=== PATIENT | female | born 1980 | race Caucasian/White ===

== ENCOUNTER 2016-05-21 21:07 | Emergency (ER) | payer OTHER ==
[~2016-05-21] VITALS: Ht 157.5 cm; Wt 76.0 kg
[~2016-05-21 21:07] MED LIST: GENT5DRO28 RIGHT EYE
[2016-05-21 21:10] VITALS: Ht 157.5 cm; Wt 76.0 kg
[2016-05-21] MEDS ORDERED: predniSONE 20 MG TAB PO STA (21:33)
[2016-05-21] MEDS ORDERED: IPRATROPIUM (NEB) 0.5 MG/2.5 ML AMP NEB STA (21:33)
[2016-05-21] MEDS ORDERED: ALBUTEROL 0.083% (NEB) 2.5 MG/3 ML AMP NEB STA (21:33)
--- NOTE | 2016-05-21 21:37 | ERD ---
ER Documentation Chief Complaint Date/Time DATE: 05/21/16 TIME: 21:35 Chief Complaint COUGH CONGESTION WITH RUNNY NOSE FOR PAST 2 WEEKS, LUNG SOUNDS CLEAR HPI Patient is a 35-year-old female who presents with cough congestion runny nose for the past 2 weeks. She denies fever. She denies nausea vomiting or diarrhea. She was seen by her primary care doctor last week gave her prescription for cough syrup which has helped a little bit but she continues to have strong cough. She is not taking other medications other than the cough syrup and has not taken antibiotics. Cough is dry and worse at night but she has had some yellow color phlegm within the last past 2 days. ROS All systems reviewed and are negative except as per history of present illness. Medications Home Meds Active Scripts Albuterol Sulfate* (Proair HFA*) 8.5 Gm Hfa.aer.ad, 2 PUFF INH Q4, #1 INHALER Prov:JOVI GUPTA PA-C 05/21/16 Prednisone* (Prednisone*) 20 Mg Tab, 40 MG PO DAILY for 4 Days, TAB Prov:JOVI GUPTA PA-C 05/21/16 Azithromycin* (Zithromax*) 250 Mg Tablet, 250 MG PO .ZPACK DIRECTED, #6 TAB TAKE 500 MG (2 TABS) THE FIRST DAY THEN 250 MG (1 TAB) DAYS 2-5 Prov:JOVI GUPTA PA-C 05/21/16 Gentamicin Sulfate* (Gentamicin Sulfate* Ophth) 0.3% - 5 Ml Drops, 1 DROP RIGHT EYE Q4 for 7 Days, EA Prov:ZAIN ARCE MD 08/06/15 Allergies Allergies: Coded Allergies: No Known Allergy (Unverified , 05/21/16) PMhx/Soc History of Surgery: Yes (uterine fibroids) Anesthesia Reaction: No Hx Neurological Disorder: No Hx Respiratory Disorders: No Hx Cardiac Disorders: No Hx Psychiatric Problems: No Hx Miscellaneous Medical Probl: Yes (FIBROIDS) Hx Alcohol Use: No Hx Substance Use: No Hx Tobacco Use: No Smoking Status: Never smoker FmHx Family History: No diabetes Physical Exam Vitals Vital Signs Date Time Temp Pulse Resp B/P Pulse Ox O2 Delivery O2 Flow Rate FiO2 05/21/16 21:52 106 20 98 21 05/21/16 21:10 97.7 100 18 127/79 100 Physical Exam General: well developed, well nourished, alert, nontoxic, no distress Head: normocephalic, atraumatic Eyes: PERRL, normal conjunctiva Neck: Supple, nontender, no lymphadenopathy, no midline tenderness Ears: no tenderness over mastoids bilaterally, TMs nonerythematous, no exudates in canal Oropharynx: no tonsilar erythema or edema, uvula midline, no exudates, no kissing tonsils, no drooling Respiratory: Clear to auscaultation bilaterally, speaks in full sentences, no use of accesory muscles or labored breathing, no rales, ronchi, or wheezing Cardiovascular: RRR, No murmurs GI: soft, non tender, non distended, negative murphys sign, negative mcburneys point tenderness, no cva tenderness bilaterally, no rebound or guarding Results 24 hrs Laboratory Tests Test 05/21/16 21:56 Bedside Urine Blood 1+ Bedside Urine Glucose (UA) Negative Bedside Urine Ketones (LAB) Negative Bedside Urine Leukocyte Esterase (L Negative Bedside Urine Nitrite (LAB) Negative Bedside Urine Protein (LAB) Negative Bedside Urine pH (LAB) 6.5 Current Medications Medications (Trade) Dose Ordered Sig/Williams Route PRN Reason Start Time Stop Time Status Last Admin Dose Admin Albuterol (Proventil 0.083% (Neb)) 2.5 mg ONCE STAT NEB 05/21/16 21:33 05/21/16 21:35 DC 05/21/16 21:52 Ipratropium [place] (Atrovent 0.02% (Neb)) 0.5 mg ONCE STAT NEB 05/21/16 21:33 05/21/16 21:35 DC 05/21/16 21:52 Prednisone (Prednisone) 60 mg ONCE STAT PO 05/21/16 21:33 05/21/16 21:35 DC 05/21/16 21:57 Procedures/MDM 35-year-old female presents with cough and congestion for the past 2 weeks. She has been seen by primary care and was given cough syrup which she is taking but is not helping. She is afebrile vital signs are within normal limits. Chest x-ray was ordered. She was given prednisone and a breathing treatment. Patient had complete resolution of her symptoms after the breathing treatment. Her x-ray was negative. Patient was given prescription for a short course of prednisone and albuterol inhaler as well as a [id number] prescription for a Z- Dragan however recommended she only begin this treatment if her symptoms worsen and she understands this. Recommended this patient follow up with her primary care doctor within 48 hours or return to the emergency room for any worsening of symptoms. However this time I do believe there is suitable for outpatient management. I answered all their questions and they agreed with the plan and were discharged home. Departure Diagnosis: Primary Impression: Bronchitis Condition: Stable JOVI GUPTA PA-C May 21, 2016 21:36
[2016-05-21 21:54] LABS: URINE BLOOD (Dip) POC 1+ (NEGATIVE)
--- NOTE | 2016-05-21 23:01 | RADRPT ---
PROCEDURE: XR Chest. CLINICAL INDICATION: Asthma exacerbation TECHNIQUE: AP Portable chest. COMPARISON: No pertinent prior examinations were submitted for comparison. FINDINGS: The cardiomediastinal silhouette is normal. The lungs are clear. The osseous structures are unrema rkable. IMPRESSION: No acute findings. RPTAT: HIKT .Kolby Chao MD, MD Date Time Electronically viewed and signed by .Kolby Chao MD, MD on 05/21/2016 23:00 .T/
[2016-05-21] MEDS ORDERED: AZIT250T94 PO (23:08)
[2016-05-21] MEDS ORDERED: PRED20TA PO (23:08)
[2016-05-21] MEDS ORDERED: ALBU8.5H3 INH (23:08)
[2016-05-21 23:15] VITALS: BP 109/69; PULSE 100; RESP 16; TEMP 98.6
== END 2016-05-21 23:16 | disposition home or self-care (01) ==
LOC: FTE 21:07
DX: J20.9 Acute bronchitis, unspecified (principal)
CPT/HCPCS: 71010; 81003; 94664; J7512; Z7502; Z7610

== ENCOUNTER 2016-11-07 16:31 | Emergency (ER) | payer OTHER ==
[~2016-11-07] VITALS: Ht 152.4 cm; Wt 75.5 kg
[~2016-11-07 16:31] MED LIST changes: +ALBU8.5H3 INH; +AZIT250T94 PO; +PRED20TA PO
[2016-11-07 16:37] VITALS: Ht 152.4 cm; Wt 75.5 kg
[2016-11-07] MEDS ORDERED: KETOROLAC 30 MG INJ IM STA (17:24)
--- NOTE | 2016-11-07 18:19 | RADRPT ---
PROCEDURE: XR Left Hand. CLINICAL INDICATION: Trauma of the thumb TECHNIQUE: Three views of the left hand were obtained. COMPARISON: No prior studies are available for comparison. FINDINGS: There is no acute fracture or dislocation. The joint spaces are maintained. No erosive changes are visualized. The soft tissues are unremarkable. RPTAT: REMIGIO IMPRESSION: 1. No acute bony abnormality. .Pao Benjamin MD, MD Date Time Electronically viewed and signed by .Pao Benjamin MD, on 11/07/2016 18:19 .T/
[2016-11-07] MEDS ORDERED: IBUP-1542 PO (18:58)
--- NOTE | 2016-11-07 21:08 | ERD ---
ER Documentation Chief Complaint Date/Time DATE: 11/07/16 TIME: 21:03 Chief Complaint LEFT THUMB PAIN HPI This patient is a 36-year-old female presenting to the emergency department with complaints of left thumb pain after accidentally slamming it in a car door 2 days ago. She reports 10 out of 10 pain. Advil relieves the pain but only temporarily. She reports aggravated pain with movement. Pain is throbbing characteristic. She denies loss of consciousness, other injuries, or other symptoms currently. ROS All systems reviewed and are negative except as per history of present illness. Medications Home Meds Active Scripts Ibuprofen* (Motrin*) 600 Mg Tab, 600 MG PO Q6, #30 TAB Prov:FABIANO SIMENTAL PA-C 11/07/16 Albuterol Sulfate* (Proair HFA*) 8.5 Gm Hfa.aer.ad, 2 PUFF INH Q4, #1 INHALER Prov:JOVI GUPTA PA-C 05/21/16 Prednisone* (Prednisone*) 20 Mg Tab, 40 MG PO DAILY for 4 Days, TAB Prov:JOVI GUPTA PA-C 05/21/16 Azithromycin* (Zithromax*) 250 Mg Tablet, 250 MG PO .ZPACK DIRECTED, #6 TAB TAKE 500 MG (2 TABS) THE FIRST DAY THEN 250 MG (1 TAB) DAYS 2-5 Prov:JOVI GUPTA PA-C 05/21/16 Gentamicin Sulfate* (Gentamicin Sulfate* Ophth) 0.3% - 5 Ml Drops, 1 DROP RIGHT EYE Q4 for 7 Days, EA Prov:ZAIN ARCE MD 08/06/15 Allergies Allergies: Coded Allergies: No Known Allergy (Unverified , 05/21/16) PMhx/Soc Medical and Surgical Hx: pt denies Medical Hx History of Surgery: Yes (uterine fibroids) Anesthesia Reaction: No Hx Neurological Disorder: No Hx Respiratory Disorders: No Hx Cardiac Disorders: No Hx Psychiatric Problems: No Hx Miscellaneous Medical Probl: Yes (FIBROIDS) Hx Alcohol Use: No Hx Substance Use: No Hx Tobacco Use: No Smoking Status: Never smoker Physical Exam Vitals Vital Signs Date Time Temp Pulse Resp B/P Pulse Ox O2 Delivery O2 Flow Rate FiO2 11/07/16 16:37 98.9 81 16 118/65 99 Physical Exam Const: Nontoxic, well-appearing female in no acute distress. Head: Atraumatic Eyes: Normal Conjunctiva ENT: Normal External Ears, Nose and Mouth. Neck: Full range of motion..~ No meningismus. Skin: No petechiae or rashes Back: No midline or flank tenderness Ext: There is a subungual hematoma noted to the left thumb with some surrounding mild edema to the nailbed. Sensation and range of motion intact in all 5 fingers of the left hand. 2+ radial pulses in the affected limb. Neur: Awake and alert Psych: Normal Mood and Affect Results 24 hrs Current Medications Medications (Trade) Dose Ordered Sig/Williams Route PRN Reason Start Time Stop Time Status Last Admin Dose Admin Ketorolac Tromethamine (Toradol) 30 mg ONCE STAT IM 11/07/16 17:24 11/07/16 17:26 DC 11/07/16 18:02 [place] [id number] Radiology Main Line: [phone] DIAGNOSTIC IMAGING REPORT Patient: HEVER PETTY : 1980 Age: 36 Sex: F MR #: [id number] DOS: 11/07/16 0000 Ordering MD: FABIANO SIMENTAL PA-C Location: [facility] Room/Bed: PROCEDURE: XR Left Hand. CLINICAL INDICATION: Trauma of the thumb TECHNIQUE: Three views of the left hand were obtained. COMPARISON: No prior studies are available for comparison. FINDINGS: There is no acute fracture or dislocation. The joint spaces are maintained. No erosive changes are visualized. The soft tissues are unremarkable. RPTAT: ZZ IMPRESSION: 1. No acute bony abnormality. .Pao Benjamin MD, MD Date Time Electronically viewed and signed by .Pao Benjamin MD, MD on 11/07/2016 18: 19 .T/ CC: FABIANO SIMENTAL PA-C Procedures/MDM 36-year-old female presenting to the emergency department with complaints of left thumb pain after injury 2 days ago. Examination shows subungual hematoma. No limits in range of motion. The patient has full strength and sensation in the affected hand. X-rays were negative for fracture. Subungal Incision and Drainage with irrigation by me with assistance from Phyllis Acevedo NP. Location: Left thumb Anesthesia: None required, IM Toradol given prior to procedure. Technique: Hot cautery trepanation Complications: none 48 hour wound check. Scar minimization instructions given. The patient is feeling improved after the procedure. Departure Diagnosis: Primary Impression: Subungual hematoma Condition: Fair Patient Instructions: Subungual Hematoma Referrals: [facility] YOU HAVE RECEIVED A MEDICAL SCREENING EXAM AND THE RESULTS INDICATE THAT YOU DO NOT HAVE A CONDITION THAT REQUIRES URGENT TREATMENT IN THE EMERGENCY DEPARTMENT. FURTHER EVALUATION AND TREATMENT OF YOUR CONDITION CAN WAIT UNTIL YOU ARE SEEN IN YOUR DOCTORS OFFICE WITHIN THE NEXT 1-2 DAYS. IT IS YOUR RESPONSIBILITY TO MAKE AN APPOINTMENT FOR FOLOW-UP CARE. IF YOU HAVE A PRIMARY DOCTOR --you should call your primary doctor and schedule an appointment IF YOU DO NOT HAVE A PRIMARY DOCTOR YOU CAN CALL OUR PHYSICIAN REFERRAL HOTLINE AT IF YOU CAN NOT AFFORD TO SEE A PHYSICIAN YOU CAN CHOSE FROM THE FOLLOWING [facility] [address] [facility] [facility] [address] [facility]. [facility] [address] [facility] [facility] [address] [facility]. [facility] [address] [facility]. [facility]. [address] Additional Instructions: Follow up with your PCP within the next 1-3 days for a repeat evaluation. If you require a referral to a specialist, your Primary Care Provider may be able to provide this for you. In most patient cases, a referral is not required. If you have further questions regarding this matter, please ask your Primary Care Provider. Return the the emergency department immediately if symptoms worsen or change. If you have any questions regarding medications, ask your pharmacist or us before you leave. If any adverse reactions, occur while taking your medications, discontinue the treatment and return to the emergency department immediately. If any new or worsening symptoms, uncontrolled fevers, or other unexplained symptoms occur, return to the emergency department immediately. Take your medications as directed, and complete the entire course of treatment. FABIANO SIMENTAL PA-C Nov 07, 2016 21:08
== END 2016-11-07 19:21 | disposition home or self-care (01) ==
LOC: FTE 16:31
DX: S60.112A Contusion of left thumb with damage to nail, initial encounter (principal); W23.0XXA Caught, crushed, jammed, or pinched between moving objects, initial encounter; Y92.810 Car as the place of occurrence of the external cause
CPT/HCPCS: 11740; 73130; 96372; J1885; Z7502

== ENCOUNTER 2017-10-01 20:48 | Emergency (ER) | END 2017-10-02 01:20 | disposition left against medical advice (07) ==